=== PATIENT | male | born 1960 | race Hispanic/Latino ===

== ENCOUNTER 2018-08-16 09:51 | Inpatient (IN) | payer OTHER ==
[2018-08-16] MEDS ORDERED: Piperacillin/Tazobactam 4.5 GM VIAL ONE ×2 (10:22→11:18)
[2018-08-16 10:43] LABS: #Eosinphils 0.4 thou/uL (0.0-0.7); #Lymphocytes 1.4 thou/uL (1.20-3.40); #Monocytes 0.8 thou/uL (0.11-0.59); #Neutrophils 7.8 thou/uL (1.40-6.50); %Basophils 0.4 % (0.0-1.0); %Eosinophils 3.9 % (0.0-10.0); %Monocytes 7.9 % (0.0-10.0); %Neutrophils 74.9 % (42.0-75.0); Hemoglobin 12.5 g/dL (14.0-18.0); Mean Corpuscular HGB CONC 32.9 g/dL (32.0-36.0); Mean Corpuscular Hemoglobin 27.8 pg (27.0-31.0); Mean Corpuscular Volume 84.4 fL (78.0-98.0); Platelet Count 479 thou/uL (130-400); RBC Distribution Width 12.5 % (11.5-14.5); Red Blood Cell (RBC) Count 4.51 mill/uL (4.70-6.10); White Blood Cell (WBC) Count 10.4 thou/uL (4.8-10.8)
--- NOTE | 2018-08-16 10:50 | RAD ---
RIGHT FOOT 3 VIEWS: Date: 08/16/18 HISTORY: Foot pain. FINDINGS: There has been prior amputation at the proximal 2nd, 3rd, 4th, and 5th metatarsals. There has been pr ior amputation of the great toe. Soft tissue swelling is seen at the amputation site. Gas density is seen within the soft tissues at t his site. Cellulitis with gas-forming organisms cannot be excluded. Erosive changes involving the head of the first metatarsal is present and I cannot exclude osteomyeli tis at this site. No other definite evidence of osteomyelitis. IMPRESSION: Soft tissue swelling at the amputation site. Suggestion of gas density within the soft tissues. Erosi ve changes of distal first metatarsal as described. POS: OFF
[2018-08-16 11:05] LABS: ALT (SGPT) 16 U/L (8-55); AST (SGOT) 15 U/L (5-34); Albumin 3.6 g/dL (3.5-5.0); Alkaline Phosphatase 96 U/L (40-150); Anion Gap 15 mmol/L (10-20); BUN (Urea Nitrogen) 17 mg/dL (8.4-25.7); Bilirubin, Total 0.4 mg/dL (0.2-1.2); Calc. Creatinine Clearance 0 mL/min (70-130); Calcium 9.8 mg/dL (7.8-10.44); Carbon Dioxide 25 mmol/L (22-29); Chloride 100 mmol/L (98-107); Estimated GFR-MDRD 52; Globulin 4.5 g/dL (2.4-3.5); Glucose 321 mg/dL (70-105); Potassium 4.5 mmol/L (3.5-5.1); Protein, Total 8.1 g/dL (6.0-8.3); Sodium 135 mmol/L (136-145)
[2018-08-16] MEDS ORDERED: Ondansetron PF 4 MG/2 ML Vial ONE (11:30)
[2018-08-16] MEDS ORDERED: Clindamycin/D5W 900 mg/50 ml Premix Bag ONE (12:15)
[2018-08-16] MEDS ORDERED: Dextrose 5% in Water 1,000 ML IV PRN (15:07)
[2018-08-16] MEDS ORDERED: Dextrose 50% Abboject 50 ML SYRINGE SLOW IVP PRN (15:07)
[2018-08-16] MEDS: HYDROcodone/Acetaminophen 5/325 mg Tablet PO PRN (15:34)
[2018-08-16] MEDS: Sodium Chloride 0.9% 1,000 ML IV SCH (18:16)
[2018-08-16] MEDS: Piperacillin/Tazobactam 3.375 GM in Sodium Chloride 0.9% 100 ML IVPB SCH (18:23)
[2018-08-16] MEDS: Heparin 5,000 UNITS/ML VIAL SC SCH ×2 (18:29→20:57)
[2018-08-16] MEDS: Insulin Glargine 35 UNITS in Pre-Filled Syringe 1 EACH SC SCH (20:56)
[2018-08-16] MEDS: HumaLOG 300 UNITS/3 ML VIAL SC PRN (20:56)
--- NOTE | 2018-08-16 22:05 | HP ---
PRIMARY CARE PHYSICIAN: Point provider. CHIEF COMPLAINT: Right foot pain and some chills. HISTORY OF PRESENT ILLNESS: The patient is a 58-year-old male, who is admitted to the hospital with exacerbation of his chronic right foot ulcer and additional some cellulitis around this area, which is going on for more than a year. He had multiple surgeries on both feet and had all of his toes and part of the both feet amputated by multiple surgeons and pace analyst. He presented to the emergency room for evaluation and was found to have some drainage from his right foot ulcer and some air presence in this area per x-rays done in the emergency room. Decision was made about hospitalization and further evaluation of his problem. He did not have any fever. He had some chills. He stated that this is an ongoing problem coming and going and recently is getting worse. He rates the pain in his right foot at 10 and in the left foot at 5. He was treated with Zosyn, clindamycin, and vancomycin in the emergency room and the culture was obtained from the wound and the patient is getting admitted to the hospital for further management. PAST MEDICAL HISTORY: 1. Hyperlipidemia. 2. Insulin-dependent diabetes mellitus. 3. Hypertension. 4. Coronary artery disease. 5. History of depression. PAST SURGICAL HISTORY: 1. Multiple amputations of the right and left toes. 2. Coronary artery bypass graft surgery three vessels. SOCIAL HISTORY: He drinks occasionally. Socially, he smokes marijuana. From time to time, he smokes 2-3 cigarettes per day. FAMILY HISTORY: Mother is still alive. She is 85. His father in his 50s of heart disease. ALLERGIES: NONE. MEDICATIONS: 1. Metformin 1000 mg twice a day. 2. Lisinopril 40 mg once a day. 3. Metoprolol 25 mg daily. 4. Amlodipine 10 mg daily. 5. Plavix 75 mg daily. 6. Levemir 35 units subcutaneously twice a day. REVIEW OF SYSTEMS: All 14 systems were reviewed and positive for tiredness and lack of energy plus all symptoms which are mentioned in HPI, otherwise negative. PHYSICAL EXAMINATION: VITAL SIGNS: Blood pressure 109/65, pulse is 82, respirations 14, temperature 98.5 orally, O2 saturation is 99% on room air. HEENT: His head is atraumatic and normocephalic. Eyes are PERRLA. Sclerae are nonicteric. Oral mucosa is somewhat dry. NECK: Supple. LUNGS: Clear. HEART: S1 and S2 normal. There is a systolic murmur audible in all precordium, 2/6. ABDOMEN: Soft and nontender. Bowel sounds are present. No organomegaly. EXTREMITIES: No clubbing, cyanosis, or edema. On upper extremities and on both lower extremities, status post amputation of all toes with some open ulceration at the base of the right foot with draining of clear liquid. He does not have much pulse palpable in both tibialis posterior and dorsalis pedis arteries similar bilaterally. NEUROLOGICAL: He is alert and oriented x4. There is no any motor deficits. He is able to move his all four extremities. There is somewhat diminished sensation on both feet. LABORATORY DATA: Lab showed white count of 10.4, hemoglobin 12.5, hematocrit 38.1, platelet count is 479,000. Sodium of 135, potassium 4.5, chloride 100, CO2 of 25, BUN 17, creatinine 1.41, glucose 321. Hemoglobin A1c 8.0. C-reactive protein 7.59, globulin 4.5, and the rest of chemistry within normal limits. EKG not done. X-ray of the right foot showed soft tissue swelling at the amputation site suggestion of gas density within the soft tissues, erosive changes of distal first metatarsal cellulitis with gas-forming organisms cannot be excluded and there is evidence of prior amputation of the proximal 2nd, 3rd, 4th and 5th metatarsals and there was a prior amputation of the great toe. IMPRESSION: 1. Right foot diabetic ulcer with some cellulitis. Rule out osteo, rule out main organisms infection. 2. Diabetes mellitus type 1. 3. Coronary artery disease, chronic, stable. 4. Systolic murmur in all precordium, chronic according to the patient. 5. Hyperlipidemia. 6. Hypertension. 7. Status post coronary artery bypass graft in the past. 8. History of depression. PLAN: Plan is full admission. Condition is fair. Activity is bedrest and bathroom privileges. IV normal saline 100 mL/h to see whether his creatinine which is slightly elevated improves with IV fluids. I suspect there is some component of prerenal azotemia. In this case, we will continue Zosyn 3.375 g every 6 hours IV piggyback and vancomycin 1 g every 12 hours IV piggyback. Both antibiotics were started in the emergency room. He received 2 L of IV fluids. We will continue normal saline 100 mL/h. We will use Vicodin 5/325 mg two tablets every 4 hours p.r.n. as needed for the pain control. We will have Dr. Melendez for General Surgery to evaluate and Dr. Pulido for ID to evaluate. We will start Accu-Cheks a.c. and at bedtime and cover with sliding scale, mild. We will also add insulin Lantus 35 units subcutaneously every 12 hours. We will continue his lisinopril, metoprolol, amlodipine and we are going to hold Plavix since most likely he will require some general surgical procedure and we will just use a small baby aspirin. He will be on heparin 5000 units subcutaneously every 8 hours for DVT prophylaxis and we are not going to use SCDs secondary to his peripheral vascular disease. We will obtain MRI of the right lower extremity to rule out osteo. Job ID: [id number]
[2018-08-16] MEDS ORDERED: Vancomycin HCl 1 GM in Premix Bag 1 BAG IVPB SCH (23:00)
[2018-08-17] MEDS: HYDROcodone/Acetaminophen 5/325 mg Tablet PO PRN ×2 (01:31→09:30)
[2018-08-17] MEDS: Sodium Chloride 0.9% 1,000 ML IV SCH ×4 (01:37→21:15)
[2018-08-17 04:06] LABS: #Eosinphils 0.5 thou/uL (0.0-0.7); #Lymphocytes 1.7 thou/uL (1.20-3.40); #Monocytes 0.7 thou/uL (0.11-0.59); #Neutrophils 4.9 thou/uL (1.40-6.50); %Basophils 0.5 % (0.0-1.0); %Eosinophils 6.7 % (0.0-10.0); %Lymphocytes 21.6 % (21.0-51.0); %Monocytes 9.2 % (0.0-10.0); Hemoglobin 10.9 g/dL (14.0-18.0); Mean Corpuscular HGB CONC 33.4 g/dL (32.0-36.0); Mean Corpuscular Hemoglobin 28.4 pg (27.0-31.0); Platelet Count 410 thou/uL (130-400); RBC Distribution Width 12.4 % (11.5-14.5); Red Blood Cell (RBC) Count 3.83 mill/uL (4.70-6.10); White Blood Cell (WBC) Count 7.9 thou/uL (4.8-10.8)
[2018-08-17 04:37] LABS: Anion Gap 12 mmol/L (10-20); BUN (Urea Nitrogen) 15 mg/dL (8.4-25.7); Calc. Creatinine Clearance 90 mL/min (70-130); Carbon Dioxide 24 mmol/L (22-29); Chloride 105 mmol/L (98-107); Estimated GFR-MDRD 89; Glucose 102 mg/dL (70-105); Potassium 4.2 mmol/L (3.5-5.1); Sodium 137 mmol/L (136-145)
[2018-08-17] MEDS: Piperacillin/Tazobactam 3.375 GM in Sodium Chloride 0.9% 100 ML IVPB SCH ×5 (05:36→23:07)
[2018-08-17] MEDS: Insulin Glargine 35 UNITS in Pre-Filled Syringe 1 EACH SC SCH ×2 (09:13→21:25)
[2018-08-17] MEDS: Heparin 5,000 UNITS/ML VIAL SC SCH ×3 (09:13→21:25)
[2018-08-17] MEDS: Vancomycin HCl 1.25 GM in Sodium Chloride 0.9% 250 ML 250 ML IVPB SCH (12:23)
[2018-08-17] MEDS ORDERED: HYDROcodone/Acetaminophen 10/325 mg Tablet PO PRN (14:21)
--- NOTE | 2018-08-17 15:13 | PDOC.PN ---
- Subjective Encounter Start Date: 08/17/18 Encounter Start Time: 15:12 Mr. Campbell was seen today in follow-up of diabetic foot infection. He does not have any complaints today. - Objective Resuscitation Status - Order Detail: 08/16/18 15:01 Resuscitation Status Routine Resuscitation Status: FULL: Full Resuscitation MAR Reviewed: Yes Vital Signs & Weight: Vital Signs (12 hours) Temp Pulse Resp BP BP Pulse Ox 08/17/18 13:11 98.2 F 60 18 121/67 95 08/17/18 08:00 98.9 F 70 16 133/71 95 Weight Weight 154 lb Result Diagrams: 08/17/18 03:43 08/17/18 03:43 Additional Labs: Accuchecks 08/17/18 08/16/18 11:22 19:50 POC Glucose 183 H 356 H Phys Exam - Physical Examination HEENT: PERRLA Respiratory: no wheezing, no rales, no rhonchi, clear to auscultation bilateral Cardiovascular: RRR, no significant murmur Gastrointestinal: soft, non-tender, no distention, positive bowel sounds Musculoskeletal: no edema dime sided ulcer on the plantar aspect of right foot, no purrulence Mild surrounding erythema Dx/Plan (1) Diabetic foot ulcer Code(s): E11.621 - TYPE 2 DIABETES MELLITUS WITH FOOT ULCER; L97.509 - NON- PRESSURE CHRONIC ULCER OTH PRT UNSP FOOT W UNSP SEVERITY Status: Acute (2) Diabetes mellitus type 2 in nonobese Code(s): E11.9 - TYPE 2 DIABETES MELLITUS WITHOUT COMPLICATIONS Status: Chronic (3) Peripheral vascular disease due to secondary diabetes Code(s): E13.51 - OTH DIABETES W DIABETIC PERIPHERAL ANGIOPATHY W/O GANGRENE Status: Chronic (4) Hypertension Code(s): I10 - ESSENTIAL (PRIMARY) HYPERTENSION Status: Chronic (5) CAD (coronary artery disease) Code(s): I25.10 - ATHSCL HEART DISEASE OF [place] CORONARY ARTERY W/O ANG PCTRS Status: Chronic - Plan * Diabetic foot infection- continue Vancomycin and Zosyn * Continue local wound care * Will consult General Surgery- ( wound care nurse noted a deep lesion, with tracking) * Await MRI results * HTN- blood pressure is stable * DM- blood glucose has been a bit labile- will monitor- continue Insulin and SSI.
[2018-08-17] MEDS: HumaLOG 300 UNITS/3 ML VIAL SC PRN (16:34)
[2018-08-18] MEDS: Morphine 4 MG/ML VIAL SLOW IVP PRN ×3 (01:20→19:57)
[2018-08-18] MEDS: Piperacillin/Tazobactam 3.375 GM in Sodium Chloride 0.9% 100 ML IVPB SCH ×3 (05:29→17:48)
[2018-08-18] MEDS ORDERED: Dextrose 5 % And 0.9 % NaCl 1,000 ML IV SCH (06:15)
[2018-08-18 07:28] LABS: #Eosinphils 0.6 thou/uL (0.0-0.7); #Lymphocytes 1.7 thou/uL (1.20-3.40); #Monocytes 0.8 thou/uL (0.11-0.59); #Neutrophils 5.3 thou/uL (1.40-6.50); %Basophils 0.3 % (0.0-1.0); %Eosinophils 6.9 % (0.0-10.0); %Lymphocytes 20.2 % (21.0-51.0); %Monocytes 9.2 % (0.0-10.0); %Neutrophils 63.4 % (42.0-75.0); Mean Corpuscular HGB CONC 30.5 g/dL (32.0-36.0); Mean Corpuscular Hemoglobin 25.6 pg (27.0-31.0); Mean Corpuscular Volume 84.2 fL (78.0-98.0); Mean Platelet Volume 7.8 fL (7.4-10.4); Platelet Count 493 thou/uL (130-400); RBC Distribution Width 12.4 % (11.5-14.5); White Blood Cell (WBC) Count 8.3 thou/uL (4.8-10.8)
[2018-08-18 07:50] LABS: Anion Gap 11 mmol/L (10-20); BUN (Urea Nitrogen) 10 mg/dL (8.4-25.7); Calc. Creatinine Clearance 91 mL/min (70-130); Calcium 9.1 mg/dL (7.8-10.44); Carbon Dioxide 27 mmol/L (22-29); Chloride 104 mmol/L (98-107); Estimated GFR-MDRD 90; Glucose 82 mg/dL (70-105); Potassium 4.2 mmol/L (3.5-5.1); Sodium 138 mmol/L (136-145)
--- NOTE | 2018-08-18 08:04 | MRI ---
MRI RIGHT FOOT WITH AND WITHOUT CONTRAST: Date: 08/17/18 INDICATION: Osteomyelitis. CONTRAST: 14 mL MultiHance. COMPARISON: Right foot radiograph dated 08/16/18. FINDINGS: There is a large plantar based wound underlying the great toe metatarsal head. There is partial amput ation of the right foot through the metatarsal shafts of the second through fifth digit and through t he MTP joint of the great toe. There is diffuse abnormal signal enhancement involving the great toe m etatarsal consistent with osteomyelitis. There is a periosseous abscess that measures 2.1 x 0.8 cm, m edial to the great toe metatarsal head. This tracks inferior to the plantar based ulceration. There i s extensive cellulitis of the right foot and associated myositis. No additional drainable fluid colle ction is evident. IMPRESSION: 1. Diffuse osteomyelitis of the great toe metatarsal with an adjacent plantar base ulceration that t racks to an abscess medial to the great toe metatarsal head, measuring up to 2.2 cm. 2. Extensive cellulitis and myositis of the right foot. POS: BH
--- NOTE | 2018-08-18 08:54 | HP ---
HISTORY OF PRESENT ILLNESS: Jay aCmpbell is a 58-year-old male patient with venous blood cultures, one of two positive coagulase-negative Staph, 08/16/2018. Cultures of the right foot reveal gram-negative eduardo, beta-hemolytic strep. The patient had an x-ray, that does not reveal really anything. He had MRI today that is pending. He has essential transmetatarsal amputation of his right foot. He has an open wound over the first metatarsal. He has purulent drainage on probing. The bone is exposed. Regardless the MRI results, he will need surgical debridement of his right foot with amputation of more of the right first metatarsal, wound VAC application in the operating room, we will plan that tomorrow. I have seen the patient multiple times in the past for foot problems. He is admitted this hospitalization under a new MR number but he has an old MR number from previous admission last in 2015. PAST SURGICAL HISTORY: On 07/27/2013, he had amputation of the distal right great toe by Dr. William. On 11/30/2013, he had amputation of the right second and third toes and metatarsals with healing by second intention performed by me. On 01/11/2015, he had amputation of the left small toe and metatarsal head. On 03/07/2015, he had incision and drainage of left foot infection subcutaneous tissue resection of the fifth metatarsal and wound VAC application. On 07/01/2015, Dr. Santino Anderson performed an aortogram runoff to address right lower extremity and a posterior tibial angioplasty. On 07/06/2015, Dr. Wilcox drained a gangrenous lateral right foot ulcer. On 07/09/2015, Dr. Wilcox completed a transmetatarsal amputation of the right foot. On 01/28/2016, he had a left third toe amputation and drainage debridement of foot abscess. On 02/21/2016, the patient had ray amputation of the left second and fourth toes. On 04/05/2016, the patient had right elbow effusion aspiration for infection. On 04/06/2016, Dr. Gant incised and drained right septic elbow. On November 15, 2009, the patient had coronary artery bypass grafting by Dr. Santino Anderson. Diagnoses at time include hypertension, coronary artery disease, hypercholesterolemia, diabetes mellitus, substance abuse, reverse greater saphenous vein used. MEDICATIONS: 1. 70/30 Humulin insulin 25 units subcu b.i.d. a.c. 2. Colchicine 0.6 mg p.o. b.i.d. 3. Coreg 12.5 mg b.i.d. 4. Aspirin 325 mg daily. PAST MEDICAL HISTORY: Diabetes mellitus, insulin dependent; hypertension; elevated cholesterol; gout; and coronary artery disease. PHYSICAL EXAMINATION: VITAL SIGNS: Height 5 foot 5 inches, weight 154 pounds, 25 BMI. Temperature 98.2, pulse 60, respiratory rate 18, and blood pressure 120/67. HEAD, EYES, EARS, NOSE, AND THROAT: Unremarkable. LUNGS: Clear to auscultation. CARDIAC: Regular rate and rhythm without murmur or gallop. ABDOMEN: Soft and nontender. No masses. EXTREMITIES: Unremarkable except right. He has palpable femoropopliteal pulses, palpable dorsalis pedis pulse on the right. On the right foot, he has essential transmetatarsal amputation with a plantar distal ulcer beneath the distal foot below the first metatarsal. When probed, this communicates to the bone. There is purulent discharge. LABORATORY DATA: White count 7, hemoglobin 10.9. Basic metabolic profile is normal. ASSESSMENT AND PLAN: 1. Diabetic ulceration, right foot with osteomyelitis and sepsis of the right foot. Recommend amputation of the right first metatarsal and amputation, wound VAC in the operating room. We will plan that tomorrow under general or under regional TIVA anesthesia. Arrangement will be made for an outpatient VAC home use with home health versus outpatient [facility] wound care if he has transportation to go there twice a week. 2. Diabetes mellitus. 3. Hypertension. 4. Gout. 5. Elevated cholesterol. 6. Coronary artery disease. The patient admitted under new MR number. Old MR number when he was seen previously in 2017 was [id number]. Currently, he is admitted to [id number] and these need to be merged to consolidate his visits. Job ID: [id number]
[2018-08-18] MEDS: Heparin 5,000 UNITS/ML VIAL SC SCH ×3 (09:44→21:29)
[2018-08-18] MEDS: Insulin Glargine 35 UNITS in Pre-Filled Syringe 1 EACH SC SCH ×2 (09:45→20:45)
[2018-08-18] MEDS ORDERED: Bupivacaine HCl 0.5%/Epinephrine 1:200,000/PF 30 ml Vial ONE (10:52)
[2018-08-18] MEDS ORDERED: Fentanyl 100 MCG/2 ML VIAL ONE ×3 (12:14→13:47)
--- NOTE | 2018-08-18 12:30 | PQF ---
DATE: 08-18-18 ATTN: DR. PREM KENNEDY Please exercise your independent, professional judgment in responding to the clarification form. Clinical indicators are provided on the bottom of this form for your review Please check appropriate box(s): [ X ] Acute Renal Failure (ARF) / Acute Kidney Injury (KATHLEEN) [ ] Insignificant Lab Values [ ] Other diagnosis [ ] Unable to determine In addition, please specify: Present on Admission (POA): [ X ] Yes [ ] No [ ] Unable to determine National Kidney Foundation Guidelines for CKD Staging Stage I Kidney damage with normal or increased GFR GFR > 90 Stage II Kidney damage with mildly decreased GFR GFR 60-89 Stage III Kidney damage with moderately decreased GFR GFR 30-59 Stage IV Kidney damage with severely decreased GFR GFR 16-29 Stage V Kidney failure GFR<15 ESRD End Stage Renal Disease On dialysis Acute Renal Failure/Acute Kidney Failure defined as: Increases in SCr by (>) 0.3 mg/dl within 48 hours OR- Increases in SCr by (>) 1.5 times baseline, known or presumed to have occurred within the prior 7 days OR- Urine volume < 0.5 ml/kg/hour for 6 hours (KDIGO supplement 2012 for RIFLE/STACY criteria) For continuity of documentation, please document condition throughout progress notes and discharge summary. Thank You. CLINICAL INDICATORS - SIGNS / SYMPTOMS / LABS: GFR: 08-16-18: 52 08-17-18: 89 08-18-18: 90 CREATININE: 08-16-18: 1.41 08-17-18: 0.88 08-18-18: 0.87 BUN: 08-16-18: 17 08-17-18: 15 08-18-18: 10 H&P: IV NS 100ML/HR TO SEE WETHER HIS CR WHICH IS SLIGHTLY ELEVATED IMPROVES WITH IVF. RISK FACTORS: H&P: HOME MEDS: METFORMIN, LISINOPRIL, METOPROLOL, PLAVIX TREATMENTS: MAR: 08-16-18: NS IVF MAR: 08-18-18: D5 NS IVF (This form is maintained as a part of the permanent medical record) 2014 [email or web address] All Rights Reserved SHARI [email or web address] Office: [phone] [facility] MED[facility] CENTERKimberley
[2018-08-18] MEDS ORDERED: Acetaminophen 500 MG TAB PO PRN (12:45)
[2018-08-18] MEDS ORDERED: traMADol HCl 50 MG TAB PO PRN ×2 (12:45)
[2018-08-18] MEDS ORDERED: Ibuprofen 600 MG TAB PO PRN (12:45)
[2018-08-18] MEDS ORDERED: Promethazine HCl 25 MG/ML VIAL IM PRN (13:20)
[2018-08-18] MEDS ORDERED: Promethazine HCl 25 MG/ML VIAL SLOW IVP PRN (13:20)
[2018-08-18] MEDS ORDERED: Ondansetron HCl/PF 4 MG/2 ML Vial IVP PRN (13:20)
[2018-08-18 13:37] VITALS: BMI 25.6
[2018-08-18] MEDS: Vancomycin HCl 1.25 GM in Sodium Chloride 0.9% 250 ML 250 ML IVPB SCH (13:48)
[2018-08-18] MEDS: Sodium Chloride 0.9% 1,000 ML IV SCH ×3 (14:51→21:28)
--- NOTE | 2018-08-18 15:13 | PDOC.PN ---
- Subjective Encounter Start Date: 08/18/18 Encounter Start Time: 15:12 Mr. Campbell was seen today in follow-up of diabetic foot infection. He is back from surgery. He does not have any complaints. He says the pain is controlled in his foot. - Objective Resuscitation Status - Order Detail: 08/16/18 15:01 Resuscitation Status Routine Resuscitation Status: FULL: Full Resuscitation MAR Reviewed: Yes Vital Signs & Weight: Vital Signs (12 hours) Temp Pulse Resp BP BP Pulse Ox 08/18/18 14:45 97.7 F 72 18 130/66 98 08/18/18 14:15 97.5 F L 81 18 131/67 100 08/18/18 08:00 98.3 F 61 18 131/81 96 08/18/18 03:25 99.2 F 62 12 133/73 95 Weight Admit Weight 154 lb Weight 154 lb I&O: 08/17/18 08/18/18 08/19/18 06:59 06:59 06:59 Intake Total 1250 Output Total 1800 Balance -550 Result Diagrams: 08/18/18 07:13 08/18/18 07:13 Additional Labs: Accuchecks 08/18/18 08/18/18 08/18/18 11:05 09:42 05:44 POC Glucose 93 91 74 08/17/18 08/17/18 20:26 16:24 POC Glucose 205 H 280 H Phys Exam - Physical Examination HEENT: PERRLA Respiratory: no wheezing, no rales, no rhonchi, clear to auscultation bilateral Cardiovascular: RRR, no rub 3/6 systolic murmur, no gallop Gastrointestinal: soft, non-tender, no distention, positive bowel sounds Musculoskeletal: no edema, pulses present foot is dressed Dx/Plan (1) Diabetic foot ulcer Code(s): E11.621 - TYPE 2 DIABETES MELLITUS WITH FOOT ULCER; L97.509 - NON- PRESSURE CHRONIC ULCER OTH PRT UNSP FOOT W UNSP SEVERITY Status: Acute (2) Diabetes mellitus type 2 in nonobese Code(s): E11.9 - TYPE 2 DIABETES MELLITUS WITHOUT COMPLICATIONS Status: Chronic (3) Peripheral vascular disease due to secondary diabetes Code(s): E13.51 - OTH DIABETES W DIABETIC PERIPHERAL ANGIOPATHY W/O GANGRENE Status: Chronic (4) Hypertension Code(s): I10 - ESSENTIAL (PRIMARY) HYPERTENSION Status: Chronic (5) CAD (coronary artery disease) Code(s): I25.10 - ATHSCL HEART DISEASE OF [place] CORONARY ARTERY W/O ANG PCTRS Status: Chronic - Plan * Diabetic foot infection- MRI demonstrated Osteomyelitis of the great toe on the right foot. He had Surgical amputation of the toe, and cultures have been sent. .They are already growing multiple organisms * DM- re-start his home dose of insulin, and SSI * HTN- blood pressure has been stable * Continue Vancomycin and Zosyn pending culture results.
[2018-08-18] MEDS: HumaLOG 300 UNITS/3 ML VIAL SC PRN ×2 (16:27→20:45)
[2018-08-18] MEDS ORDERED: Lidocaine 1% PF 5 ML VIAL ONE (16:52)
[2018-08-18] MEDS ORDERED: PROPOFOL 200 MG/20 ML VIAL ONE (16:52)
[2018-08-18] MEDS ORDERED: PHENYLEPHRINE-NS 100 MCG/ML 10 ML SYRINGE ONE (16:52)
[2018-08-18] MEDS ORDERED: Ondansetron PF 4 MG/2 ML Vial ONE (16:52)
[2018-08-18] MEDS ORDERED: ePHEDrine 50 MG/ML VIAL ONE (16:52)
--- NOTE | 2018-08-18 19:49 | OP ---
DATE OF PROCEDURE: 08/18/2018 PREOPERATIVE DIAGNOSES: Diabetic right foot infection with previous essential transmetatarsal amputation with diabetic ulceration, right foot plantar just beneath the remaining metatarsal head distal foot with an intact first metatarsal and cartilage with purulent discharge. POSTOPERATIVE DIAGNOSES: Diabetic right foot infection with previous essential transmetatarsal amputation with diabetic ulceration, right foot plantar just beneath the remaining metatarsal head distal foot with an intact first metatarsal and cartilage with purulent discharge. PROCEDURES PERFORMED: Debridement of right foot diabetic wound with resection of right first metatarsal, debridement of wound, skin, subcutaneous tissue, connective tissue, tendon healing by second intention. Wound Care team to apply the wound VAC. PLAN: Discharge home on oral antibiotics after outpatient wound VAC arrangements made. Home health at home versus outpatient [facility] wound care appointment. Oral antibiotics for 2 weeks. ANESTHESIA: General LMA. DESCRIPTION OF PROCEDURE: The patient was taken to the operating room, where under general LMA anesthesia, right lower extremity was prepared with ChloraPrep and draped in routine fashion. An ellipse of skin excised from the right foot overlying the metatarsal head. The cartilage remained on the metatarsal head. The metatarsal was dissected free along with cartilaginous tissue, connective tissue, and subcutaneous tissue, debrided sharply, resecting the metatarsal head, resecting approximately rongeur, irrigating the wound. Hemostasis gained with the cautery. Good hemostasis obtained. Healthy tissue remained. Wound Care team placed a wound VAC. The patient tolerated the procedure well. Job ID: [id number]
[2018-08-18 23:32] LABS: Vancomycin, Random 11.9 ug/mL (See Comment)
[2018-08-19] MEDS: Piperacillin/Tazobactam 3.375 GM in Sodium Chloride 0.9% 100 ML IVPB SCH ×5 (00:06→23:45)
[2018-08-19] MEDS: Morphine 4 MG/ML VIAL SLOW IVP PRN ×5 (00:12→23:52)
[2018-08-19] MEDS ORDERED: hydrALAZINE 20 MG/ML VIAL SLOW IVP PRN (00:47)
[2018-08-19] MEDS: Vancomycin HCl 750 MG in Sodium Chloride 0.9% 250 ML 250 ML IVPB SCH ×2 (02:07→14:09)
[2018-08-19] MEDS: Sodium Chloride 0.9% 1,000 ML IV SCH ×3 (03:15→23:45)
[2018-08-19 06:38] LABS: #Eosinphils 0.5 thou/uL (0.0-0.7); #Lymphocytes 1.6 thou/uL (1.20-3.40); #Monocytes 0.5 thou/uL (0.11-0.59); #Neutrophils 5.2 thou/uL (1.40-6.50); %Basophils 0.2 % (0.0-1.0); %Eosinophils 6.9 % (0.0-10.0); %Lymphocytes 20.1 % (21.0-51.0); %Monocytes 6.7 % (0.0-10.0); %Neutrophils 66.1 % (42.0-75.0); Hemoglobin 10.4 g/dL (14.0-18.0); Mean Corpuscular HGB CONC 30.8 g/dL (32.0-36.0); Mean Corpuscular Hemoglobin 25.6 pg (27.0-31.0); Mean Corpuscular Volume 83.1 fL (78.0-98.0); Platelet Count 519 thou/uL (130-400); RBC Distribution Width 12.6 % (11.5-14.5); Red Blood Cell (RBC) Count 4.07 mill/uL (4.70-6.10); White Blood Cell (WBC) Count 7.9 thou/uL (4.8-10.8)
[2018-08-19 06:59] LABS: Anion Gap 11 mmol/L (10-20); BUN (Urea Nitrogen) 8 mg/dL (8.4-25.7); Calc. Creatinine Clearance 84 mL/min (70-130); Calcium 8.8 mg/dL (7.8-10.44); Carbon Dioxide 27 mmol/L (22-29); Chloride 103 mmol/L (98-107); Estimated GFR-MDRD 81; Glucose 190 mg/dL (70-105); Potassium 4.1 mmol/L (3.5-5.1); Sodium 137 mmol/L (136-145)
[2018-08-19] MEDS: HumaLOG 300 UNITS/3 ML VIAL SC PRN ×2 (08:32→20:37)
[2018-08-19] MEDS: Insulin Glargine 35 UNITS in Pre-Filled Syringe 1 EACH SC SCH ×2 (08:33→20:38)
[2018-08-19] MEDS: metFORMIN 500 MG TAB PO SCH ×2 (08:34→17:44)
[2018-08-19] MEDS: Amlodipine 5 MG TAB PO SCH (08:34)
[2018-08-19] MEDS: Clopidogrel Bisulfate 75 MG TAB PO SCH (08:35)
[2018-08-19] MEDS: Heparin 5,000 UNITS/ML VIAL SC SCH ×3 (08:35→20:38)
[2018-08-19] MEDS: Lisinopril 20 MG TAB PO SCH (08:36)
[2018-08-19] MEDS ORDERED: Non-Formulary Item 1 EACH (Metformin Hcl [Metformin Hcl] 1,000 MG) PO SCH (09:00)
[2018-08-19] MEDS ORDERED: INSULIN DETEMIR 35 UNIT SC SCH (09:00)
[2018-08-19] MEDS ORDERED: Amlodipine 10 MG TAB PO SCH ×2 (09:00)
[2018-08-19] MEDS ORDERED: Lisinopril 20 MG TAB PO SCH (09:00)
[2018-08-19] MEDS ORDERED: Lisinopril 10 MG TAB PO SCH (09:00)
--- NOTE | 2018-08-19 09:42 | PDOC.PN ---
- Subjective Encounter Start Date: 08/19/18 Encounter Start Time: 07:10 Mr. Campbell was seen today in follow-up of Diabetic foot infection. He does not have any complaints this morning. He denies foot pain. He did mention, that he is concerned that he is on too much blood pressure medication. He says when he takes the medications as prescribed he feels dizzy and weak. - Objective Resuscitation Status - Order Detail: 08/16/18 15:01 Resuscitation Status Routine Resuscitation Status: FULL: Full Resuscitation MAR Reviewed: Yes Vital Signs & Weight: Vital Signs (12 hours) Temp Pulse Resp BP BP BP Pulse Ox 08/19/18 08:36 164/70 H 08/19/18 08:34 60 164/70 H 08/19/18 08:05 97.9 F 60 18 164/70 H 100 08/19/18 04:30 99.4 F 74 18 173/79 H 96 08/19/18 04:27 99.4 F 74 18 173/79 H 96 08/19/18 01:09 66 16 159/90 H 08/19/18 00:59 66 189/91 H 08/19/18 00:39 66 16 189/91 H 08/19/18 00:17 98.2 F 67 18 183/88 H 97 Weight Admit Weight 154 lb Weight 154 lb I&O: 08/18/18 08/19/18 08/20/18 06:59 06:59 06:59 Intake Total 1250 Output Total 1800 Balance -550 Result Diagrams: 08/19/18 05:51 08/19/18 05:51 Additional Labs: Accuchecks 08/19/18 08/18/18 08/18/18 05:26 20:06 18:54 POC Glucose 244 H 362 H 339 H 08/18/18 08/18/18 08/18/18 15:53 11:05 09:42 POC Glucose 306 H 93 91 Phys Exam - Physical Examination HEENT: PERRLA Respiratory: no wheezing, no rales, no rhonchi, clear to auscultation bilateral Cardiovascular: RRR 3/6 systolic murmur Gastrointestinal: soft, non-tender, no distention, positive bowel sounds Musculoskeletal: pulses present + mild edema around the feet Neurological: non-focal Dx/Plan (1) Diabetic foot ulcer Code(s): E11.621 - TYPE 2 DIABETES MELLITUS WITH FOOT ULCER; L97.509 - NON- PRESSURE CHRONIC ULCER OTH PRT UNSP FOOT W UNSP SEVERITY Status: Acute (2) Diabetes mellitus type 2 in nonobese Code(s): E11.9 - TYPE 2 DIABETES MELLITUS WITHOUT COMPLICATIONS Status: Chronic (3) Peripheral vascular disease due to secondary diabetes Code(s): E13.51 - OTH DIABETES W DIABETIC PERIPHERAL ANGIOPATHY W/O GANGRENE Status: Chronic (4) Hypertension Code(s): I10 - ESSENTIAL (PRIMARY) HYPERTENSION Status: Chronic (5) CAD (coronary artery disease) Code(s): I25.10 - ATHSCL HEART DISEASE OF [place] CORONARY ARTERY W/O ANG PCTRS Status: Chronic - Plan * Diabetic foot infection- his culture results are beginning to result. He has Strep and MRSA growing so far, still awaiting the identification of the gram negative eduardo. * Continue local wound care * HTN- will re-start Lisinopril, and Amlodipine but at lower doses * CAD- stable
[2018-08-19] MEDS ORDERED: Atorvastatin Calcium 10 MG TAB PO SCH (21:00)
[2018-08-19] MEDS ORDERED: Simvastatin 20 MG TAB PO SCH (21:00)
[2018-08-20] MEDS: Vancomycin HCl 750 MG in Sodium Chloride 0.9% 250 ML 250 ML IVPB SCH (02:17)
[2018-08-20 04:32] LABS: #Eosinphils 0.6 thou/uL (0.0-0.7); #Lymphocytes 1.7 thou/uL (1.20-3.40); #Monocytes 0.5 thou/uL (0.11-0.59); #Neutrophils 6.1 thou/uL (1.40-6.50); %Basophils 0.4 % (0.0-1.0); %Eosinophils 6.9 % (0.0-10.0); %Lymphocytes 18.9 % (21.0-51.0); %Monocytes 5.6 % (0.0-10.0); %Neutrophils 68.2 % (42.0-75.0); Hemoglobin 11.3 g/dL (14.0-18.0); Mean Corpuscular HGB CONC 32.1 g/dL (32.0-36.0); Mean Corpuscular Hemoglobin 27.6 pg (27.0-31.0); Mean Platelet Volume 8.2 fL (7.4-10.4); Platelet Count 431 thou/uL (130-400); RBC Distribution Width 12.7 % (11.5-14.5)
[2018-08-20 04:43] LABS: Anion Gap 14 mmol/L (10-20); BUN (Urea Nitrogen) 9 mg/dL (8.4-25.7); Calc. Creatinine Clearance 87 mL/min (70-130); Calcium 9.1 mg/dL (7.8-10.44); Carbon Dioxide 21 mmol/L (22-29); Chloride 107 mmol/L (98-107); Estimated GFR-MDRD 86; Glucose 92 mg/dL (70-105); Potassium 4.4 mmol/L (3.5-5.1); Sodium 138 mmol/L (136-145)
[2018-08-20] MEDS: Piperacillin/Tazobactam 3.375 GM in Sodium Chloride 0.9% 100 ML IVPB SCH (05:53)
[2018-08-20] MEDS: Morphine 4 MG/ML VIAL SLOW IVP PRN (06:54)
[2018-08-20] MEDS: metFORMIN 500 MG TAB PO SCH (08:01)
[2018-08-20] MEDS: Amlodipine 5 MG TAB PO SCH (08:01)
[2018-08-20] MEDS: Lisinopril 20 MG TAB PO SCH (08:02)
[2018-08-20] MEDS: Clopidogrel Bisulfate 75 MG TAB PO SCH (08:02)
[2018-08-20] MEDS: Heparin 5,000 UNITS/ML VIAL SC SCH (08:02)
[2018-08-20 08:55] VITALS: BP 144/67; TEMP 98
[2018-08-20] MEDS: Insulin Glargine 35 UNITS in Pre-Filled Syringe 1 EACH SC SCH (08:56)
--- NOTE | 2018-08-20 10:18 | PRG ---
DATE OF SERVICE: 08/20/2018 Jay Campbell is doing well today. I viewed his wound with Wound Care today. The wound looks very good and granulating. There is no infection. The patient can be changed to oral antibiotics. From a wound standpoint, I think the positive coagulase-negative staphylococcus blood culture one or two on 08/16/2018, is a contaminant. The foot cultures reveal MRSA Proteus and Streptococcus. MRSA is sensitive to doxycycline and Bactrim. The patient can be discharged with Bactrim and Augmentin for 10 days. He can follow up in my office. I can see him in Wound Care. Whenever his wound VAC is approved, he can be discharged home today. I will see him as needed this hospitalization. Job ID: [id number]
[2018-08-20] MEDS: Sodium Chloride 0.9% 1,000 ML IV SCH (11:03)
--- NOTE | 2018-08-20 11:48 | PDOC.PN ---
- Subjective Encounter Start Date: 08/20/18 Encounter Start Time: 11:47 Mr Campbell was seen today in follow-up of diabetic foot infection. He does not have any complaints. - Objective Resuscitation Status - Order Detail: 08/16/18 15:01 Resuscitation Status Routine Resuscitation Status: FULL: Full Resuscitation MAR Reviewed: Yes Vital Signs & Weight: Vital Signs (12 hours) Temp Pulse Resp BP BP Pulse Ox 08/20/18 08:02 146/67 H 08/20/18 08:01 60 146/67 H 08/20/18 08:00 98 08/20/18 07:35 98.0 F 57 L 18 144/67 H 98 08/20/18 04:27 97.9 F 65 16 170/78 H 95 08/20/18 00:20 98.2 F 87 20 127/61 98 Weight Admit Weight 154 lb Weight 154 lb I&O: 08/19/18 08/20/18 08/21/18 06:59 06:59 06:59 Intake Total 2200 Output Total 3850 Balance -1650 Result Diagrams: 08/20/18 04:07 08/20/18 04:07 Additional Labs: Accuchecks 08/20/18 08/20/18 08/20/18 11:07 09:46 05:28 POC Glucose 109 75 118 H 08/19/18 08/19/18 20:08 16:11 POC Glucose 175 H 107 Phys Exam - Physical Examination HEENT: PERRLA Respiratory: no wheezing, no rales, no rhonchi, clear to auscultation bilateral Cardiovascular: RRR, no significant murmur, no rub Gastrointestinal: soft, non-tender, no distention, positive bowel sounds Musculoskeletal: no edema wound vac is in place Dx/Plan (1) Diabetic foot ulcer Code(s): E11.621 - TYPE 2 DIABETES MELLITUS WITH FOOT ULCER; L97.509 - NON- PRESSURE CHRONIC ULCER OTH PRT UNSP FOOT W UNSP SEVERITY Status: Acute (2) Diabetes mellitus type 2 in nonobese Code(s): E11.9 - TYPE 2 DIABETES MELLITUS WITHOUT COMPLICATIONS Status: Chronic (3) Peripheral vascular disease due to secondary diabetes Code(s): E13.51 - OTH DIABETES W DIABETIC PERIPHERAL ANGIOPATHY W/O GANGRENE Status: Chronic (4) Hypertension Code(s): I10 - ESSENTIAL (PRIMARY) HYPERTENSION Status: Chronic (5) CAD (coronary artery disease) Code(s): I25.10 - ATHSCL HEART DISEASE OF [place] CORONARY ARTERY W/O ANG PCTRS Status: Chronic - Plan * Diabetic foot infection- he is s/p amputation of the first metatarsal * He is stable for discharge home.
[2018-08-20] MEDS ORDERED: Sulfameth/Trimethoprim DS 800-160mg TAB PO SCH (21:00)
[2018-08-20] MEDS ORDERED: Amoxicillin/Potassium Clav 500 MG TAB PO SCH (21:00)
--- NOTE | 2018-08-21 13:54 | DIS ---
DATE OF ADMISSION: 08/16/2018 DATE OF DISCHARGE: 08/20/2018 The [facility] DISCHARGE DISPOSITION: Home. PRIMARY DISCHARGE DIAGNOSES: 1. Osteomyelitis of the first toe on the right foot. 2. Hyperlipidemia. 3. Diabetes mellitus, type 2. 4. Hypertension. 5. Coronary artery disease. 6. Acute kidney injury, resolved. DISCHARGE MEDICATIONS: 1. Bactrim DS one tablet twice a day for 10 days. 2. Augmentin 875 mg twice a day for 10 days. 3. Lisinopril 20 mg daily. 4. Ibuprofen 800 mg q.8 as needed. 5. Insulin 70/30 at 25 units daily. 6. Colchicine 0.6 mg daily. 7. Carvedilol 12.5 mg twice a day. 8. Aspirin 325 mg daily. 9. Amlodipine, the dose was lowered to 5 mg daily and lisinopril dose was lowered from 40 to 20 mg daily. 10. Plavix 75 mg daily. 11. Metformin 1000 mg twice a day. PROCEDURES DONE DURING ADMISSION: The patient had an MRI of the lower extremity demonstrating diffuse osteomyelitis of the great toe and metatarsal. There is extensive cellulitis and myositis of the right foot. The patient had amputation of the first metatarsal of the right foot, and wound VAC application. CODE STATUS: Full code. ALLERGIES: NO KNOWN DRUG ALLERGIES. HOSPITAL COURSE: Mr. Campbell is a very pleasant 58-year-old gentleman, who presented to the emergency room with an ulcer on the right foot on the plantar aspect of the foot. He has a history of diabetes and previous diabetic foot ulcers. The area started to drain and become more swollen, and for this reason, he came to the emergency room for evaluation. He was started on IV antibiotics and an MRI was obtained of the lower extremity. It did demonstrate osteomyelitis of the first metatarsal on the right foot. He was seen by General Surgery and underwent amputation of the first metatarsal. He had an uneventful postoperative course. He mentioned to me that he was having symptoms of dizziness and feeling lightheaded and weak, which he attributed to his blood pressure medications. We did a trial of lowering the dose of the medications, which had a little effect on his blood pressure, but improved his symptoms. For this reason, the amlodipine was decreased from 10 to 5 mg and lisinopril was decreased from 40 to 20 mg. He was instructed to talk to his primary care physician about whether or not to continue this regimen. The carvedilol was kept at the same dose. He was instructed on dietary adherence post discharge, and was discharged home on 08/20/2018, to have close outpatient followup. Job ID: [id number]
== END 2018-08-20 14:40 | disposition home or self-care (01) | DRG 617 ==
LOC: EDBD → ERS 09:51 → ONC 11:44 → MERGE 11:44
PROVIDERS: ADMIT Internal Medicine; ATTEND Internal Medicine
PROC: 0Y6M0Z9 Detachment at Right Foot, Partial 1st Ray, Open Approach (ICD-10-PCS; principal; 2018-08-18)
DX: E11.69 Type 2 diabetes mellitus with other specified complication (principal); M86.171 Other acute osteomyelitis, right ankle and foot; L03.115 Cellulitis of right lower limb; N17.9 Acute kidney failure, unspecified; E11.621 Type 2 diabetes mellitus with foot ulcer; L97.519 Non-pressure chronic ulcer of other part of right foot with unspecified severity; I10 Essential (primary) hypertension; I25.10 Atherosclerotic heart disease of native coronary artery without angina pectoris; F32.9 Major depressive disorder, single episode, unspecified; F17.210 Nicotine dependence, cigarettes, uncomplicated; E11.51 Type 2 diabetes mellitus with diabetic peripheral angiopathy without gangrene; M10.9 Gout, unspecified; E78.00 Pure hypercholesterolemia, unspecified; B95.62 Methicillin resistant Staphylococcus aureus infection as the cause of diseases classified elsewhere; Z16.29 Resistance to other single specified antibiotic; Z79.4 Long term (current) use of insulin; Z95.1 Presence of aortocoronary bypass graft; Z79.899 Other long term (current) drug therapy
CPT/HCPCS: 36415; 36416; 80048; 80053; 80202; 82947; 83036; 83605; 85025; 85652; 86140; 87040; 87070; 87077; 87149; 87186; 87205; 88305; 88311; 93005; 93010; 96365; 96367; 96368; 96375; J0360; J0670; J1644; J1825; J2270; J2405; J2543; J3010; J3370; J3490; J7050

== ENCOUNTER 2018-08-22 11:41 | Outpatient (CLI) | payer OTHER ==
[2018-08-22] MEDS ORDERED: Sodium Chloride 0.9% 15 ML NEB ONE (18:13)
== END 2018-08-22 11:42 | disposition home or self-care (01) ==
LOC: EDBD → WCC 11:41
PROVIDERS: ATTEND Family Medicine
DX: E11.621 Type 2 diabetes mellitus with foot ulcer (principal); L97.519 Non-pressure chronic ulcer of other part of right foot with unspecified severity; E78.5 Hyperlipidemia, unspecified; I10 Essential (primary) hypertension; I25.10 Atherosclerotic heart disease of native coronary artery without angina pectoris; R01.1 Cardiac murmur, unspecified; Z95.1 Presence of aortocoronary bypass graft; Z86.59 Personal history of other mental and behavioral disorders
CPT/HCPCS: 97605; A4218

== ENCOUNTER 2018-08-26 12:55 | Outpatient (CLI) | payer OTHER ==
[2018-08-26] MEDS ORDERED: Sodium Chloride 0.9% 15 ML NEB ONE (18:00)
== END 2018-08-26 12:56 | disposition home or self-care (01) ==
LOC: WCC 12:55
PROVIDERS: ATTEND Family Medicine
DX: T81.89XD Other complications of procedures, not elsewhere classified, subsequent encounter (principal); Z89.431 Acquired absence of right foot
CPT/HCPCS: 97605; A4218

== ENCOUNTER 2018-08-29 13:34 | Outpatient (CLI) | payer OTHER ==
[2018-08-29] MEDS ORDERED: Sodium Chloride 0.9% 15 ML NEB ONE (15:00)
== END 2018-08-29 13:35 | disposition home or self-care (01) ==
LOC: WCC 13:34
PROVIDERS: ATTEND Family Medicine
DX: T81.89XD Other complications of procedures, not elsewhere classified, subsequent encounter (principal); Z89.431 Acquired absence of right foot
CPT/HCPCS: 97605; A4218

== ENCOUNTER 2018-09-05 11:49 | Outpatient (CLI) | payer OTHER ==
[2018-09-05] MEDS ORDERED: Sodium Chloride 0.9% 15 ML NEB ONE (15:00)
== END 2018-09-05 11:50 | disposition home or self-care (01) ==
LOC: WCC 11:49
PROVIDERS: ATTEND Family Medicine
DX: E10.621 Type 1 diabetes mellitus with foot ulcer (principal); L97.519 Non-pressure chronic ulcer of other part of right foot with unspecified severity; I25.10 Atherosclerotic heart disease of native coronary artery without angina pectoris; E78.5 Hyperlipidemia, unspecified; R01.1 Cardiac murmur, unspecified; I10 Essential (primary) hypertension; Z95.1 Presence of aortocoronary bypass graft; Z86.59 Personal history of other mental and behavioral disorders
CPT/HCPCS: 97605; A4218

== ENCOUNTER 2018-09-09 11:15 | Outpatient (CLI) | payer OTHER ==
[2018-09-09] MEDS ORDERED: Sodium Chloride 0.9% 15 ML NEB ONE ×2 (15:00)
== END 2018-09-09 11:16 | disposition home or self-care (01) ==
LOC: WCC 11:15
PROVIDERS: ATTEND Family Medicine
DX: T81.89XD Other complications of procedures, not elsewhere classified, subsequent encounter (principal); Z89.431 Acquired absence of right foot
CPT/HCPCS: 36416; 97605; A4218

== ENCOUNTER 2018-09-19 13:43 | Outpatient (CLI) | payer OTHER | END 2018-09-19 13:44 | disposition home or self-care (01) | LOC: WCC 13:43 | PROVIDERS: ATTEND Family Medicine | DX: T87.89 Other complications of amputation stump (principal) | CPT/HCPCS: 99211; G0463 ==